=== PATIENT | female | born 1995 | race Caucasian/White ===

== ENCOUNTER 2016-11-19 18:19 | Emergency (ER) | payer BC ==
[2016-11-19 18:32] VITALS: BP 113/58
--- NOTE | 2016-11-19 21:11 | EDM.PDOC ---
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 Patient is approximately 8 weeks . She is a . 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 Last miscarriage was about 2 years ago. Patient reports that the bleeding started about 30 minutes prior to arrival in the ER. She reports it was heavy at first and describes it as "slimy and brown". She has not utilized a pad for the bleeding. She reports associated symptoms of breast tenderness, fatigue and constipation. She reports some occasional nausea but has not had any in the last 2 days. She denies any cramping, pelvic or abdominal pain, fevers, chills, vomiting, dysuria or hematuria. Patient's reports her last menstrual period was September 23. She has been seen in Dr. Burch and Jesika Chin for her PARTS CLEANER care. States that they have followed her closely due to her previous miscarriages. Next appt with Vivian Mcclendon is scheduled for December 13. Last visit with Kim was about 2 weeks ago. She has heard heart tones. She reports that her blood type is A+. 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 Denies: fever, chills GI/Abdominal: Reports: Constipation. Denies: Abdominal pain, Nausea, Vomiting : Reports: other (vaginal bleeding; reports breast tenderness). Denies: dysuria, hematuria, pain ED EXAM - Physical Exam Exam: See Below Exam Limited By: No limitations General Appearance: alert, WD/WN, no apparent distress Respiratory/Chest: no respiratory distress, lungs clear, normal breath sounds Cardiovascular: normal peripheral pulses, regular rate, rhythm, no murmur GI/Abdominal: normal bowel sounds, soft, non tender (Female) Exam: Normal external exam, Normal speculum exam, Vaginal bleeding ( small amount of brown blood in the vagina). No: Cervical dilatation, Products of conception, tissue present in cervix/vagina Neurological: alert, oriented, normal cognition Psychiatric: normal affect, normal mood Skin Exam: Warm, Dry, Normal color Course - Vital Signs Last Recorded V/S: Last Vital Signs Temp Pulse 89 11/19/16 18:26 Resp 16 11/19/16 18:26 BP 113/58 L 11/19/16 18:26 Pulse Ox 99 11/19/16 18:26 - Orders/Labs/Meds Labs: Laboratory Tests 11/19/16 11/19/16 Range/Units 19:10 19:15 HCG, Quant 51980.0 mIU/mL Urine Color Yellow (Yellow) Urine Appearance Cloudy H (Clear) Urine pH 7.5 (5.0-8.0) Ur Specific [place] 1.020 (1.005-1.030) Urine Protein Negative (Negative) Urine Glucose (UA) Negative (Negative) Urine Ketones Negative (Negative) Urine Occult Blood Negative (Negative) Urine Nitrite Negative (Negative) Urine Bilirubin Negative (Negative) Urine Urobilinogen 1.0 (0.2-1.0) Ur Leukocyte Esterase Negative (Negative) Urine RBC 0-5 (0-5) /hpf Urine WBC 0-5 (0-5) /hpf Ur Epithelial Cells Not Reportable Ur Squamous Epith Cells 0-5 (0-5) /hpf Amorphous Sediment Many H (NOT SEEN) /hpf Urine Bacteria Few (FEW) /hpf Urine Mucus Not seen (FEW) /hpf - Radiology Interpretation Free Text/Narrative:: transvaginal ultrasound impression per Vrad: Normal-appearing intrauterine gestational sac yolk sac and pole. [place]-rump length measures 1.3 cm consistent with an estimated gestational age of 7 weeks 4 days. Evaluation of cardiac activity is normal at 148 beats per minute. The ovaries are unremarkable. No free fluid in the pelvis. CT Results Date: 11/19/16 - Re-Assessments/Exams Free Text/Narrative Re-Assessment/Exam: 11/19/16 21:09 HCG is 85,823. UA is negative for any blood, leukocytes, nitrites, protein or ketones. I reviewed the labs and ultrasound results with the patient. appears to be fine. No reason identified for the bleeding. Recommend pelvic rest. Followup with OB this week. Discharge instructions as documented. Departure - Departure Time of Disposition: 21:10 Disposition: Home, Self-Care 01 Condition: good Clinical Impression: Instructions: First Trimester of Referrals: Jesika Chin NP [Primary Care Provider] - Forms: ED Department Discharge Additional Instructions: [id number] Tylenol as needed for pain. No intercourse or anything else vaginally until seen by OB. Follow up with OB this week. Please return to the ER if your symptoms change or worsen. In particular if you experience severe cramping, severe bleeding or any other concerning symptom.
--- NOTE | 2016-11-21 10:34 | US ---
First trimester obstetrical ultrasound: Multiple real-time images were obtained transvaginally and transabdominally. Comparison: Previous studies are available, most recent is 11/10/16. Dates: LMP: LMP given as 09/23/16, KADE 06/30/17, gestational age 8 weeks 1 day Current ultrasound: KADE 07/04/17, gestational age 7 weeks 4 days Earliest ultrasound (11/10/16): KADE 07/04/17, gestational age 7 weeks 4 days Single intrauterine gestation is seen. Amniotic fluid volume is normal. Small embryo is identified. No subchorionic hemorrhage is seen. Small cyst believed to be physiologic seen within the right ovary. Small left adnexal cyst is seen measuring 1 cm felt to be incidental. Measurements: Gestational sac: 3.07 cm - 8 weeks 1 day [place]-rump length: 1.32 cm - 7 weeks 4 days Heart rate: 146 bpm Impression: 1. Single intrauterine gestation. Dates as noted above. 2. No complicating process is identified. Other incidental findings as noted above. Diagnostic code #2 I agree with preliminary report issued by [facility] (preliminary report dictated on 11/19/16, 9:48 PM Central Time)
== END 2016-11-19 21:29 | disposition home or self-care (01) ==
LOC: JD.ED 18:19
DX: O46.91 Antepartum hemorrhage, unspecified, first trimester (principal); F17.210 Nicotine dependence, cigarettes, uncomplicated; Z91.040 Latex allergy status; Z3A.08 8 weeks gestation of pregnancy
CPT/HCPCS: 36415; 76817; 76817-26; 81001; 84702; 99283; 99284-25

== ENCOUNTER 2017-01-17 17:29 | Emergency (ER) | payer BC, MEDICAID ==
[2017-01-17 17:57] VITALS: BP 116/65
[2017-01-17] MEDS ORDERED: Lactated Ringers 1,000 ML IV ONE (18:24)
[2017-01-17] MEDS ORDERED: Sodium Chloride 0.9% 10 ML Syringe FLUSH PRN (18:24)
--- NOTE | 2017-01-17 18:26 | EDM.PDOC ---
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 Patient is approximately 17 weeks . She has had no major complications in her thus far. She was seen by myself in the ER around 8 weeks for abdominal cramping and spotting. Ultrasound was preformed and no abnormalities were identified. Patient has been seeing ob. Next visit is the end of January. Patient is a . Due date is . Current complaints include lightheadeness, cramping, vision changes, dizziness, nausea, headaches and diarrhea. Denies any vomiting. Has not taken her temp but has felt warm. Unsure how many episodes of diarrhea she has had. Reports her vision "goes in and out". Patient reports minor intermittent cramping in her mid to upper abdomen. Reports a small amount of vaginal spotting evident by brown blood, not enough to wear a pad. Had some brown blood Monday and today. No urinary symptoms. Patient reports she had a vaginal infection 3 weeks ago. She was treated with antibiotics. Sounds as if she had BV. Patient also reports vaginal pain post intercourse. Has discussed with ob. Reports vaginal pain and swelling post intercourse. She was tested for STDs and test were negative. She also had intercourse on Monday. Patient was outside a fair amount recently, of note the weather has been in the 90s to 100s. 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: Other OB/BYN History: DNC, stillbirth - Past Surgical History GI Surgical History: Reports: Cholecystectomy Female Surgical History: Reports: D&C Social & Family History - Tobacco Use Smoking Status *Q: Former Smoker Years of Tobacco use: 4 Packs/Tins Daily: 0.1 Used Tobacco, but Quit: Yes Month Tobacco Last Used: october Second Hand Smoke Exposure: Yes - Caffeine Use Caffeine Use: Reports: Soda - Alcohol Use Days Per Week of Alcohol Use: 0 Number of Drinks Per Day: 0 Total Drinks Per Week: 0 - Recreational Drug Use Recreational Drug Use: No Drug Use in Last 12 Months: No ED ROS GENERAL - Review of Systems Review Of Systems: See Below Constitutional: Denies: Fever (has felt warm but has not taken her temp) HEENT: Reports: Vision Change (reports vision " goes in and out") Respiratory: Denies: Cough GI/Abdominal: Reports: Abdominal Pain (minor abdominal cramping in the mid to upper abdomen), Diarrhea (can not quantify), Nausea. Denies: Hematochezia, Melena, Vomiting : Denies: Dysuria (reports brown vaginal discharge x 2 episodes) Neurological: Reports: Headache ED EXAM - Physical Exam Exam: See Below Exam Limited By: No Limitations General Appearance: Alert, WD/WN, No Apparent Distress Ears: Normal External Exam Throat/Mouth: Normal Inspection, No Airway Compromise Neck: Normal Inspection Respiratory/Chest: No Respiratory Distress, Lungs Clear, Normal Breath Sounds Cardiovascular: Normal Peripheral Pulses, Regular Rate, Rhythm, No Murmur GI/Abdominal: Soft, Non-Tender, Gravid Uterus Fundal Height In cm: 18 Heart Tones: Present Heart Tones per Min: 140 (140 to 150) Neurological: Alert, Oriented, Normal Cognition Course - Vital Signs Last Recorded V/S: Last Vital Signs Temp 36.3 C 01/17/17 17:51 Pulse 87 01/17/17 17:51 Resp 12 01/17/17 17:51 BP 116/65 01/17/17 17:51 Pulse Ox 100 01/17/17 17:51 Orthostatic Blood Pressure [ 103/66 Standing] Orthostatic Blood Pressure [ 102/66 Sitting] Orthostatic Blood Pressure [ 114/61 Supine] - Orders/Labs/Meds Labs: Laboratory Tests 01/17/17 01/17/17 01/17/17 Range/Units 17:45 19:30 19:30 WBC 11.40 H (3.98-10.04) K/mm3 RBC 3.92 L (3.98-5.22) M/mm3 Hgb 11.3 (11.2-15.7) gm/L Hct 33.7 L (34.1-44.9) % MCV 86.0 (79.4-94.8) fl MCH 28.8 (25.6-32.2) pg MCHC 33.5 (32.2-35.5) g/dl RDW Std Deviation 43.0 (36.4-46.3) fL Plt Count 316 (182-369) K/mm3 MPV 10.1 (9.4-12.3) fl Neut % (Auto) 65.7 (34.0-71.1) % Lymph % (Auto) 26.0 (19.3-51.7) % [place] % (Auto) 6.8 (4.7-12.5) % Eos % (Auto) 1.1 (0.7-5.8) Baso % (Auto) 0.2 (0.1-1.2) % Neut # (Auto) 7.50 H (1.56-6.13) K/mm3 Lymph # (Auto) 2.96 (1.18-3.74) K/mm3 [place] # (Auto) 0.77 H (0.24-0.36) K/mm3 Eos # (Auto) 0.13 (0.04-0.36) K/mm3 Baso # (Auto) 0.02 (0.01-0.08) K/mm3 Sodium 138 (136-145) mEq/L Potassium 3.6 (3.5-5.1) mEq/L Chloride 104 (98-107) mEq/L Carbon Dioxide 24 (21-32) mEq/L Anion Gap 13.6 (5-15) BUN 5 L (7-18) mg/dL Creatinine 0.5 L (0.55-1.02) mg/dL Est Cr Clr Drug Dosing 148.47 mL/min Estimated GFR (MDRD) > 60 (>60) mL/min BUN/Creatinine Ratio 10.0 L (14-18) Glucose 78 (74-106) mg/dL Calcium 9.0 (8.5-10.1) mg/dL Total Bilirubin 0.1 L (0.2-1.0) mg/dL AST 14 L (15-37) U/L ALT 27 (14-59) U/L Alkaline Phosphatase 18 L (46-116) U/L Total Protein 7.1 (6.4-8.2) g/dl Albumin 3.2 L (3.4-5.0) g/dl Globulin 3.9 gm/dL Albumin/Globulin Ratio 0.8 L (1-2) Urine Color Yellow (Yellow) Urine Appearance Clear (Clear) Urine pH 6.0 (5.0-8.0) Ur Specific [place] 1.020 (1.005-1.030) Urine Protein Negative (Negative) Urine Glucose (UA) Negative (Negative) Urine Ketones Negative (Negative) Urine Occult Blood Negative (Negative) Urine Nitrite Negative (Negative) Urine Bilirubin Negative (Negative) Urine Urobilinogen 0.2 (0.2-1.0) Ur Leukocyte Esterase Negative (Negative) Urine RBC 0-5 (0-5) /hpf Urine WBC 0-5 (0-5) /hpf Ur Epithelial Cells 0-5 (0-5) /hpf Urine Bacteria Rare (FEW) /hpf Urine Mucus Few (FEW) /hpf Meds: Medications Discontinued Medications Generic Name Dose Route Start Last Admin Trade Name Raimundoq PRN Reason Stop Dose Admin Lactated Ringer's 1,000 mls @ 999 mls/hr 01/17/17 18:24 01/17/17 18:50 Ringers, Lactated IV 01/17/17 19:24 999 mls/hr .BOLUS ONE Administration Sodium Chloride 10 ml 01/17/17 18:24 01/17/17 18:49 Saline Flush FLUSH 10 ml ASDIRECTED PRN Administration Keep Vein Open - Re-Assessments/Exams Free Text/Narrative Re-Assessment/Exam: 01/17/17 20:13 Labs include the following WBC is 11.40, hgb is 11.3 and plts are 316 sodium is 138, potassium is 3.6 and chloride is 104. creatinine is 0.5. anion gap is 13.6 and glucose is 78 AST is 14, ALT is 27 and alk phos is 18 UA is negative for nitrites, leuks, gluclose, protein and blood. I reviewed the lab results with the patient. At this time we will discharge home. Her nausea has improved. She feels much better after 1L LR. I offered to recheck her for BV, she does not want to be checked today. Her urine was sent for culture but her UA was unremarkable. Vaginal swelling and pain could be from an irritate her partner is using such as lotion or soap. We discussed this. She will talk further with her partner about this. Discharge instructions this document. Departure - Departure Time of Disposition: 20:13 Disposition: Home, Self-Care 01 Condition: Good Clinical Impression: , Nausea and vomiting in - Discharge Information Instructions: Nausea and Vomiting, Adult Referrals: Marlon Sandoval MD [Primary Care Provider] - Forms: ED Department Discharge Additional Instructions: Go home and rest. Continue to drink plenty of fluids. Drink half your body weight in ounces and fluids every day. [id number] Tylenol as needed for pain relief. follow-up with OB in 1-2 weeks. Nothing vaginally, including intercourse, until cleared by OB. Please return to the ER if your symptoms change or worsen.
== END 2017-01-17 20:25 | disposition home or self-care (01) ==
LOC: JD.ED 17:29
DX: O21.9 Vomiting of pregnancy, unspecified (principal); Z90.49 Acquired absence of other specified parts of digestive tract; Z91.040 Latex allergy status; Z87.891 Personal history of nicotine dependence; Z3A.17 17 weeks gestation of pregnancy
CPT/HCPCS: 36415; 80053; 81001; 85025; 87086; 96360; 99284; J7050; J7120; 99283

== ENCOUNTER 2017-06-30 08:56 | Inpatient (IN) | payer MEDICAID ==
[2017-06-30] MEDS ORDERED: Ondansetron 4 MG/2 ML SDV IVPUSH PRN (20:11)
[2017-06-30] MEDS ORDERED: Sodium Chloride 0.9% 10 ML Syringe FLUSH PRN (20:11)
[2017-06-30] MEDS ORDERED: Lidocaine 1% 50 ML MDV INJECT ONE (20:11)
[2017-06-30] MEDS ORDERED: Oxytocin/Lactated Ringers 10 UNIT/1,000 ML BAG IV SCH (20:15)
[2017-07-01] MEDS ORDERED: Ondansetron 4 MG/2 ML SDV IVPUSH PRN (00:25)
[2017-07-01] MEDS ORDERED: ePHEDrine 50 MG/ML SDV IVPUSH PRN (00:25)
[2017-07-01] MEDS ORDERED: diphenhydrAMINE 50 MG/ML SDV IVPUSH PRN (00:25)
[2017-07-01] MEDS ORDERED: fentaNYL 100 MCG/2 ML SDV EPIDUR PRN (00:25)
[2017-07-01] MEDS: Lactated Ringers 1,000 ML IV SCH ×3 (00:30→02:30)
[2017-07-01] MEDS: Bupivacaine/fentaNYL/NS 100 ML Bag EPIDUR SCH ×2 (01:12→08:18)
--- NOTE | 2017-07-01 01:15 | PCM.PREANE ---
Preanesthetic Assessment - Anesthesia/Transfusion/Family Hx Anesthesia History: Prior Anesthesia Without Reaction Family History of Anesthesia Reaction: No Transfusion History: No Prior Transfusion(s) Intubation History: Unknown - Review of Systems General: No Symptoms Pulmonary: No Symptoms Cardiovascular: No Symptoms Gastrointestinal: No Symptoms Neurological: No Symptoms Other: Reports: None - Physical Assessment O2 Sat by Pulse Oximetry: 99 Respiratory Rate: 14 Vital Signs: Last Vital Signs Temp 36.9 C 06/30/17 20:11 Pulse 114 H 06/30/17 20:11 Resp 14 06/30/17 20:11 BP 106/56 L 06/30/17 20:11 Pulse Ox 99 06/30/17 20:11 Height: 1.6 m Weight: 102.058 kg Mental Status: Alert & Oriented x3 Airway Class: Mallampati = 1 Dentition: Reports: Normal Dentition Thyro-Mental Finger Breadths: 3 Mouth Opening Finger Breadths: 3 ROM/Head Extension: Full Lungs: Clear to Auscultation, Normal Respiratory Effort Cardiovascular: Regular Rate, Regular Rhythm - Lab Values: Laboratory Last Values WBC 8.08 K/mm3 (3.98-10.04) 06/30/17 21:00 RBC 3.68 M/mm3 (3.98-5.22) L 06/30/17 21:00 Hgb 10.5 gm/L (11.2-15.7) L 06/30/17 21:00 Hct 31.7 % (34.1-44.9) L 06/30/17 21:00 MCV 86.1 fl (79.4-94.8) 06/30/17 21:00 MCH 28.5 pg (25.6-32.2) 06/30/17 21:00 MCHC 33.1 g/dl (32.2-35.5) 06/30/17 21:00 RDW Std Deviation 44.6 fL (36.4-46.3) 06/30/17 21:00 Plt Count 259 K/mm3 (182-369) 06/30/17 21:00 MPV 10.2 fl (9.4-12.3) 06/30/17 21:00 Neut % (Auto) 77.9 % (34.0-71.1) H 06/30/17 21:00 Lymph % (Auto) 11.9 % (19.3-51.7) L 06/30/17 21:00 [place] % (Auto) 9.4 % (4.7-12.5) 06/30/17 21:00 Eos % (Auto) 0.2 (0.7-5.8) L 06/30/17 21:00 Baso % (Auto) 0.1 % (0.1-1.2) 06/30/17 21:00 Neut # (Auto) 6.29 K/mm3 (1.56-6.13) H 06/30/17 21:00 Lymph # (Auto) 0.96 K/mm3 (1.18-3.74) L 06/30/17 21:00 [place] # (Auto) 0.76 K/mm3 (0.24-0.36) H 06/30/17 21:00 Eos # (Auto) 0.02 K/mm3 (0.04-0.36) L 06/30/17 21:00 Baso # (Auto) 0.01 K/mm3 (0.01-0.08) 06/30/17 21:00 - Allergies Allergies/Adverse Reactions: Allergies Allergy/AdvReac Type Severity Reaction Status Date / Time Latex, Natural Rubber Allergy Hives Verified 06/17/17 21:55 - Acknowledgements Anesthesia Type Planned: Epidural Pt an Appropriate Candidate for the Planned Anesthesia: Yes Alternatives and Risks of Anesthesia Discussed w Pt/Guardian: Yes Pt/Guardian Understands and Agrees with Anesthesia Plan: Yes PreAnesthesia Questionnaire - Past Health History Medical/Surgical History: Denies Medical/Surgical History HEENT History: Reports: None Genitourinary History: Reports: None 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: Other OB/BYN History: DNC, stillbirth Hematologic History: Reports: Anemia - Infectious Disease History Infectious Disease History: Reports: None - Past Surgical History GI Surgical History: Reports: Cholecystectomy Female Surgical History: Reports: D&C - SUBSTANCE USE Smoking Status *Q: Current Every Day Smoker Tobacco Use Within Last Twelve Months: Cigarettes Second Hand Smoke Exposure: Yes Days Per Week of Alcohol Use: 0 Number of Drinks Per Day: 0 Total Drinks Per Week: 0 Recreational Drug Use History: Yes Recreational Drug Type: 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, Heroin, Methamphetamine Recreational Drug Last Use: 06/2015 - HOME MEDS Home Medications: Home Meds Vits #93/Iron Fum/FA [ Formula Tablet] 1 tab PO DAILY 01/17/17 [History] - CURRENT (IN HOUSE) MEDS Current Meds: Current Medications Diphenhydramine HCl (Benadryl) 25 mg IVPUSH Q6H PRN PRN Reason: Pruritis Ephedrine Sulfate (Ephedrine Sulfate) 5 mg IVPUSH ASDIRECTED PRN PRN Reason: Hypotension Fentanyl (Sublimaze) 100 mcg EPIDUR ONETIME PRN PRN Reason: Pain Last Admin: 07/01/17 01:12 Dose: 100 mcg Fentanyl/Bupivacaine HCl (Fentanyl/Bupivacaine/Ns 2 Mcg-0.125% 100 Ml) 100 ml EPIDUR ASDIRECTED ALEX Last Admin: 07/01/17 01:12 Dose: 100 ml Lactated Ringer's (Ringers, Lactated) 1,000 mls @ 100 mls/hr IV ASDIRECTED ALEX Last Admin: 07/01/17 00:30 Dose: 999 mls/hr Oxytocin/Lactated Ringer's (Pitocin In Lr 10 Units/1,000 Ml) 10 unit in 1,000 mls @ 12 mls/hr IV TITRATE ALEX; 2 MUNITS/MIN PRN Reason: Protocol Ondansetron HCl (Zofran) 4 mg IVPUSH Q4H PRN PRN Reason: Nausea/Vomiting Ondansetron HCl (Zofran) 4 mg IVPUSH ONETIME PRN PRN Reason: Nausea/Vomiting Sodium Chloride (Saline Flush) 10 ml FLUSH ASDIRECTED PRN PRN Reason: Keep Vein Open Discontinued Medications Lidocaine HCl (Xylocaine 1%) 10 ml INJECT ONETIME ONE Stop: 06/30/17 20:12
--- NOTE | 2017-07-01 09:32 | PCM.SN ---
- Free Text/Narrative Note: Regine is a 22-year-old 3 para 10-1 white female who was admitted last evening for elective induction of labor. She is 39-4/7 weeks gestational age at the time of admission. She was induced with artificial rupture membranes and then augmented with Pitocin. She progressed steadily to complete cervical dilation by approximately 0830 hrs. on 07/01/2017. She pushed for approximately one half hour and at 0856 hrs. she delivered a viable, bernstein, male with Apgars of 8 and 9, a weight of 3110 g (6 pounds 13.7 ounces), a length of 20.5 inches. She delivered in a occiput anterior position. Amniotic fluid was clear. She had a second-degree perineal laceration which was repaired with 3-0 Monocryl in a routine fashion. Pitocin was administered IV after delivery of the baby to facilitate an increase in uterine tone and decrease bleeding. Placenta delivered in a Bruce presentation, appeared intact and complete and was discarded per patient desire. Estimated blood loss was 100 mL. Patient plans to bottlefeed. Condition: Good
[2017-07-01] MEDS ORDERED: Lanolin 100% Cream 7 GM Tube TOP PRN (10:27)
[2017-07-01] MEDS ORDERED: Acetaminophen 325 MG Tab PO PRN (10:27)
[2017-07-01] MEDS ORDERED: Measles, Mumps & Rubella Vaccine 0.5 ML SDV SUBCUT ONE (10:27)
[2017-07-01] MEDS ORDERED: Witch Hazel Medicated Pads 100/Jar TOP PRN (10:27)
[2017-07-01] MEDS ORDERED: Benzocaine/Menthol 20%-0.5% Spray 56 GM Canister TOP PRN (10:27)
[2017-07-01] MEDS: Ibuprofen 600 MG Tab PO PRN ×2 (11:05→17:24)
--- NOTE | 2017-07-01 11:08 | PCM48HPAN ---
Post Anesthesia Note - EVALUATION WITHIN 48HRS OF ANESTHETIC Vital Signs in Normal Range: Yes Patient Participated in Evaluation: Yes Respiratory Function Stable: Yes Airway Patent: Yes Cardiovascular Function Stable: Yes Hydration Status Stable: Yes Pain Control Satisfactory: Yes Nausea and Vomiting Control Satisfactory: Yes Mental Status Recovered: Yes
[2017-07-01] MEDS ORDERED: Pseudoephedrine 30 MG Tab PO PRN (19:54)
[2017-07-01] MEDS ORDERED: diphenhydrAMINE 25 MG Cap PO PRN (19:56)
[2017-07-01] MEDS ORDERED: Docusate Sodium 100 MG Cap PO PRN (21:05)
[2017-07-02] MEDS: Ibuprofen 600 MG Tab PO PRN ×2 (02:23→07:55)
[2017-07-02] MEDS ORDERED: Prenatal Multivitamin with Calcium/Folic Acid/Iron Tab PO SCH (09:00)
--- NOTE | 2017-07-02 10:16 | PCM.DCSUM1 ---
Discharge Summary - Hospital Course Free Text/Narrative:: Regine is a 22-year-old 3 para 10-1 white female who was admitted last evening for elective induction of labor. She is 39-4/7 weeks gestational age at the time of admission. She was induced with artificial rupture membranes and then augmented with Pitocin. She progressed steadily to complete cervical dilation by approximately 0830 hrs. on 07/01/2017. She pushed for approximately one half hour and at 0856 hrs. she delivered a viable, bernstein, male with Apgars of 8 and 9, a weight of 3110 g (6 pounds 13.7 ounces), a length of 20.5 inches. She delivered in a occiput anterior position. Amniotic fluid was clear. She had a second-degree perineal laceration which was repaired with 3-0 Monocryl in a routine fashion. Pitocin was administered IV after delivery of the baby to facilitate an increase in uterine tone and decrease bleeding. Placenta delivered in a Bruce presentation, appeared intact and complete and was discarded per patient desire. Estimated blood loss was 100 mL. Patient plans to bottlefeed. patient is done well. Her vital signs were stable. She is ambulating well. She is bottle feeding. Lochia is minimal. She is voiding without problems. She is desiring discharge home. - Discharge Data Discharge Date: 07/02/17 Discharge Disposition: Home, Self-Care 01 Condition: Good - Patient Instructions Diet: Regular Diet as Tolerated Activity: As Tolerated (No intercourse or tampons until bleeding resolves) Driving: May Drive Today Showering/Bathing: May Shower (Patient may take) Notify Provider of: Fever, Increased Pain, Swelling and Redness, Nausea and/or Vomiting - Discharge Plan Home Medications: Home Meds Vits #93/Iron Fum/FA [ Formula Tablet] 1 tab PO DAILY 01/17/17 [History] Ibuprofen [IJD: Ibuprofen] 600 mg PO Q4H PRN tablet 07/02/17 [Rx] Referrals: Marlon Sandoval MD [Primary Care Provider] - (Return to clinicDr. Sandoval2 weeks.) - Discharge Summary/Plan Comment DC Time >30 min.: No Discharge Summary/Plan Comment: Discharge instructions: 1. Discharge home 2. Diet, activity and follow-up discussed with patient. Recommend nursing diet with increased calories and calcium. 3. Precautions given concern increased pain, bleeding, temperature, signs/ symptoms of DVT/PE. 4. Medications per home medication was printed, discussed with and given to the patient. 5. Return to clinic-Dr. Sandoval-[facility] in 2 weeks. Diagnosis: Term -delivered Condition: Good - Patient Data Vitals - Most Recent: Last Vital Signs Temp 36.6 C 07/02/17 04:12 Pulse 81 07/02/17 04:12 Resp 18 07/02/17 04:12 BP 106/87 07/02/17 04:12 Pulse Ox 92 L 07/02/17 04:12 Weight - Most Recent: 102.058 kg Lab Results - Last 24 hrs: Laboratory Results - last 24 hr 07/02/17 Range/Units 06:20 WBC 9.78 (3.98-10.04) K/mm3 RBC 3.27 L (3.98-5.22) M/mm3 Hgb 9.3 L (11.2-15.7) gm/L Hct 28.5 L (34.1-44.9) % MCV 87.2 (79.4-94.8) fl MCH 28.4 (25.6-32.2) pg MCHC 32.6 (32.2-35.5) g/dl RDW Std Deviation 44.5 (36.4-46.3) fL Plt Count 264 (182-369) K/mm3 MPV 9.8 (9.4-12.3) fl Med Orders - Current: Current Medications Acetaminophen (Tylenol) 650 mg PO Q4H PRN PRN Reason: mild pain or fever Benzocaine/Menthol (Dermoplast Pain Relief [place]) 0 gm TOP ASDIRECTED PRN PRN Reason: Perineal Comfort Measure Last Admin: 07/01/17 11:06 Dose: 1 applic Diphenhydramine HCl (Benadryl) 25 mg PO Q4H PRN PRN Reason: Congestion Last Admin: 07/01/17 20:16 Dose: 25 mg Docusate Sodium (Colace) 100 mg PO BID PRN PRN Reason: Constipation Last Admin: 07/01/17 21:15 Dose: 100 mg Emollient Ointment (Lansinoh Hpa) 0 gm TOP ASDIRECTED PRN PRN Reason: Sore Nipples Ibuprofen (Motrin) 600 mg PO Q4H PRN PRN Reason: Mild pain or fever Last Admin: 07/02/17 07:55 Dose: 600 mg Prenat Multivit/Moville/Iron/Folic Ac ( Plus Iron) 1 each PO DAILY ALEX Pseudoephedrine HCl (Sudogest) 30 mg PO Q6H PRN PRN Reason: Congestion Last Admin: 07/01/17 20:17 Dose: 30 mg Witch Karen (Tucks) 1 pad TOP ASDIRECTED PRN PRN Reason: Hemorrhoid pain Last Admin: 07/01/17 11:05 Dose: 1 applic Discontinued Medications Diphenhydramine HCl (Benadryl) 25 mg IVPUSH Q6H PRN PRN Reason: Pruritis Last Admin: 07/01/17 06:41 Dose: 25 mg Ephedrine Sulfate (Ephedrine Sulfate) 5 mg IVPUSH ASDIRECTED PRN PRN Reason: Hypotension Fentanyl (Sublimaze) 100 mcg EPIDUR ONETIME PRN PRN Reason: Pain Last Admin: 07/01/17 01:12 Dose: 100 mcg Fentanyl/Bupivacaine HCl (Fentanyl/Bupivacaine/Ns 2 Mcg-0.125% 100 Ml) 100 ml EPIDUR ASDIRECTED ALEX Last Admin: 07/01/17 08:18 Dose: 100 ml Lactated Ringer's (Ringers, Lactated) 1,000 mls @ 100 mls/hr IV ASDIRECTED ALEX Last Admin: 07/01/17 02:30 Dose: 100 mls/hr Oxytocin/Lactated Ringer's (Pitocin In Lr 10 Units/1,000 Ml) 10 unit in 1,000 mls @ 12 mls/hr IV TITRATE ALEX; 2 MUNITS/MIN PRN Reason: Protocol Last Titration: 07/01/17 08:14 Dose: 8 munits/min, 48 mls/hr Lidocaine HCl (Xylocaine 1%) 10 ml INJECT ONETIME ONE Stop: 06/30/17 20:12 Last Admin: 07/01/17 21:05 Dose: Not Given Measles/Mumps/Rubella Vaccine Live (M-M-R Ii Vaccine) 0.5 ml SUBCUT .ONCE ONE Stop: 07/01/17 10:28 Last Admin: 07/01/17 22:51 Dose: 0.5 ml Ondansetron HCl (Zofran) 4 mg IVPUSH Q4H PRN PRN Reason: Nausea/Vomiting Ondansetron HCl (Zofran) 4 mg IVPUSH ONETIME PRN PRN Reason: Nausea/Vomiting Sodium Chloride (Saline Flush) 10 ml FLUSH ASDIRECTED PRN PRN Reason: Keep Vein Open *Q Meaningful Use (DIS) - VTE *Q VTE Criteria *Q: - Stroke *Q Stroke Criteria *Q: - AMI *Q AMI Criteria *Q:
[2017-07-02 19:29] VITALS: BP 112/68
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
== END 2017-07-02 12:30 | disposition home or self-care (01) | DRG 775 ==
LOC: JD.OB 08:56 → OBSVTOIN 07-01 08:56 → JD.OB 07-01 08:56
PROVIDERS: ADMIT Obstetrics & Gynecology; ATTEND Obstetrics & Gynecology
PROC: 10E0XZZ Delivery of Products of Conception, External Approach (ICD-10-PCS; principal; 2017-07-01)
PROC: 0KQM0ZZ Repair Perineum Muscle, Open Approach (ICD-10-PCS; 2017-07-01)
PROC: 3E0P3VZ Introduction of Hormone into Female Reproductive, Percutaneous Approach (ICD-10-PCS; 2017-07-01)
PROC: 10907ZC Drainage of Amniotic Fluid, Therapeutic from Products of Conception, Via Natural or Artificial Opening (ICD-10-PCS; 2017-07-01)
PROC: 00HU33Z Insertion of Infusion Device into Spinal Canal, Percutaneous Approach (ICD-10-PCS; 2017-07-01)
PROC: 3E0R3BZ Introduction of Anesthetic Agent into Spinal Canal, Percutaneous Approach (ICD-10-PCS; 2017-07-01)
PROC: 3E0234Z Introduction of Serum, Toxoid and Vaccine into Muscle, Percutaneous Approach (ICD-10-PCS; 2017-07-01)
DX: O70.1 Second degree perineal laceration during delivery (principal); Z37.0 Single live birth; Z3A.39 39 weeks gestation of pregnancy; Z23 Encounter for immunization; Z91.040 Latex allergy status
CPT/HCPCS: 36415; 51702; 59300; 59409; 85025; 85027; 90471; 90707; A9270-GY; J1200; J2590; J3010; J7120

== ENCOUNTER 2018-03-07 00:48 | Emergency (ER) | payer SELFPAY ==
[2018-03-07] MEDS ORDERED: Diphtheria,Pertussis(Acell),Tetanus Vaccine 0.5 ML SDV IM ONE (01:16)
[2018-03-07] MEDS ORDERED: Lidocaine/EPINEPHrine/Tetracaine Soln 1 ML TOP STA (01:17)
[2018-03-07] MEDS ORDERED: Lidocaine 1% with EPINEPHrine 1:100,000 20 ML MDV INJECT ONE (01:42)
[2018-03-07] MEDS ORDERED: Bupivacaine 0.5% 10 ML SDV INJECT ONE (01:42)
--- NOTE | 2018-03-07 01:42 | EDM.PDOC ---
ED HPI GENERAL MEDICAL PROBLEM - General Chief Complaint: Lower Extremity Injury/Pain Stated Complaint: INJURED LEFT KNEE Time Seen by Provider: 03/07/18 01:04 Source of Information: Reports: Patient History Limitations: Reports: No Limitations - History of Present Illness INITIAL COMMENTS - FREE TEXT/NARRATIVE: The patient states she was carrying her baby on a gravel surface around 23:30 tonight, when she tripped and fell, landing on her left knee. She presents with a laceration to the anterior left knee. She is otherwise uninjured. The patient does not recall when her last tetanus vaccination was. The patient does not have a PCP. 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: Endocrine/Metabolic History: Reports: Obesity/BMI 30+ Hematologic History: Reports: Anemia - Past Surgical History GI Surgical History: Reports: Cholecystectomy (2015) Female Surgical History: Reports: D&C Musculoskeletal Surgical History: Reports: ORIF (right elbow) Social & Family History - Family History Family Medical History: Noncontributory - Tobacco Use Smoking Status *Q: Current Every Day Smoker Years of Tobacco use: 8 Packs/Tins Daily: 0.5 - Caffeine Use Caffeine Use: Reports: Coffee, Soda, Tea, Other Other Caffeine Use: 1-3 drinks daily - Alcohol Use Alcohol Use History: Yes Alcohol Use Frequency: Socially - Recreational Drug Use Recreational Drug Use: No - Living Situation & Occupation Living situation: Reports: , with Significant Other (Fiance), with Family (1 child) Occupation: Employed ([employer]) Review of Systems - Review of Systems Review Of Systems: ROS reveals no pertinent complaints other than HPI. ED EXAM, GENERAL - Physical Exam Exam: See Below Exam Limited By: No Limitations General Appearance: Alert, WD/WN, No Apparent Distress Extremities: Other (Approximate 4.5 cm irregular laceration, tangential to the leg, over the left patellar ligament. Neurovascular status of the left lower extremity is intact.) ED TRAUMA EXTREMITY PROCEDURES - Laceration/Wound Repair Left Knee Lac/Wound Length In cm: 4.5 Appearance: Subcutaneous, Irregular, Clean Distal NVT: Neuro & Vascular Intact, No Tendon Injury Anesthetic Type: Topical (LET) Local Anesthesia - Lidocaine (Xylocaine): 1% with EPI (50:50 admixture) Local Anesthesia - Bupivicaine (Marcaine): 0.5% Plain (50:50 admixture) Local Anesthetic Volume: 3cc Skin Prep: Providone-Iodine (Betadine) Exploration/Debridement/Repair: Wound Explored, In a Bloodless Field, Explored to Base, Minimal Debridement, Minimally Undermined, No Foreign Material Found, Wound Margins Revised Closed With: Sutures Suture Size: 3-0 # of Sutures: 9 Suture Type: Nylon (Ethilon), Interrupted, Simple Sterile Dressing Applied: Nurse Tetanus Status Addressed: Yes Complications: No Course - Vital Signs Last Recorded V/S: Last Vital Signs Temp 36.3 C 03/07/18 00:58 Pulse 85 03/07/18 00:58 Resp 18 03/07/18 00:58 BP Pulse Ox 99 03/07/18 00:58 - Orders/Labs/Meds Orders: Active Orders 24 hr Category Date Time Status Vaccines to be Administered [RC] PER UNIT ROUTINE Care 03/07/18 01:16 Active Meds: Medications Discontinued Medications Generic Name Dose Route Start Last Admin Trade Name Yuliet PRN Reason Stop Dose Admin Bupivacaine HCl 10 ml 03/07/18 01:42 03/07/18 01:47 Sensorcaine-Mpf 0.5% INJECT 03/07/18 01:43 10 ml ONETIME ONE Administration Diphtheria/Tetanus/Acell Pertussis 0.5 ml 03/07/18 01:16 03/07/18 01:29 Adacel IM 03/07/18 01:17 0.5 ml .ONCE ONE Administration Lidocaine/Epinephrine 20 ml 03/07/18 01:42 03/07/18 01:47 Xylocaine 1% With Epinephrine 1:100,000 INJECT 03/07/18 01:43 20 ml ONETIME ONE Administration Lidocaine/Tetracaine 2 ml 03/07/18 01:17 03/07/18 01:28 Let Soln TOP 03/07/18 01:18 2 ml ONETIME STA Administration - Re-Assessments/Exams Free Text/Narrative Re-Assessment/Exam: 03/07/18 02:27 Following topical let, followed by local infiltration with a 50-50 admixture of lidocaine 1% with epinephrine and bupivacaine 0.5% without epinephrine, the patient's left knee laceration was sutured with 9 simple interrupted sutures, using 3-0 Ethilon. The patient tolerated the procedure well. A large bandage will be placed over the wound. Wound management was explained to the patient and her fianc. Departure - Departure Time of Disposition: 02:29 Disposition: Home, Self-Care 01 Condition: Good Clinical Impression: Laceration of left knee - Discharge Information *PRESCRIPTION DRUG MONITORING PROGRAM REVIEWED*: Not Applicable *COPY OF PRESCRIPTION DRUG MONITORING REPORT IN PATIENT ROLAND: Not Applicable Referrals: Tia Colindres PA-C [Primary Care Provider] - Forms: ED Department Discharge Additional Instructions: You were seen in the emergency room after tripping and falling, cutting your left knee. Your laceration was closed with 9 sutures. You received a tetanus vaccination in the ER. Keep the wound clean with ordinary soap and water. Pat dry, then apply a clean bandage over the wound, daily. We DO NOT recommend that you apply an antibiotic ointment. Take [id number] Tylenol or ibuprofen as needed for discomfort. The sutures should be ready for removal by 03/16/2018. This can be done at a walk-in clinic, by a nurse at your doctor's office, or in the ER. If any other problems, please do not hesitate to return to the ER. - My Orders Last 24 Hours: My Active Orders 03/07/18 01:16 Vaccines to be Administered [RC] PER UNIT ROUTINE - Assessment/Plan Last 24 Hours: My Active Orders 03/07/18 01:16 Vaccines to be Administered [RC] PER UNIT ROUTINE
== END 2018-03-07 02:55 | disposition home or self-care (01) ==
LOC: JD.ED 00:48
DX: S81.012A Laceration without foreign body, left knee, initial encounter (principal); E66.9 Obesity, unspecified; F17.210 Nicotine dependence, cigarettes, uncomplicated; Z23 Encounter for immunization; Z91.040 Latex allergy status; W01.0XXA Fall on same level from slipping, tripping and stumbling without subsequent striking against object, initial encounter
CPT/HCPCS: 12002; 90471; 90715; 99283; A9270; J3490; 99282-25

== ENCOUNTER 2018-03-08 17:58 | Emergency (ER) | payer SELFPAY ==
[2018-03-08 18:26] VITALS: BP 150/82
--- NOTE | 2018-03-08 18:51 | EDM.PDOC ---
ED HPI GENERAL MEDICAL PROBLEM - General Chief Complaint: Lower Extremity Injury/Pain Stated Complaint: LEFT KNEE LAC NUMBNESS Time Seen by Provider: 03/08/18 18:26 Source of Information: Reports: Patient History Limitations: Reports: No Limitations - History of Present Illness INITIAL COMMENTS - FREE TEXT/NARRATIVE: 23 -year-old female presents for evaluation and treatment of complications from a laceration to the left knee. Patient was seen in the ER the other night. She had 10 sutures placed to the left knee. Injury occurred after she fell onto some gravel. She reports since she's had the sutures placed she has appreciated increased swelling, redness and pain to the area. She denies any fevers, chills , nausea or vomiting. She denies any purulent discharge from the area. States she has been washing the area with soap and water but has not been applying a topical antibacterial ointment. 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: Other LAUNCH CHECK OUT History: DNC, stillbirth Endocrine/Metabolic History: Reports: Obesity/BMI 30+ Hematologic History: Reports: Anemia - Infectious Disease History Infectious Disease History: Reports: None - Past Surgical History GI Surgical History: Reports: Cholecystectomy Female Surgical History: Reports: D&C Musculoskeletal Surgical History: Reports: ORIF Social & Family History - Family History Family Medical History: Noncontributory - Tobacco Use Smoking Status *Q: Current Every Day Smoker Years of Tobacco use: 4 Packs/Tins Daily: 0.5 - Caffeine Use Caffeine Use: Reports: Coffee, Soda, Tea, Other Other Caffeine Use: 1-3 drinks daily - Recreational Drug Use Recreational Drug Use: No - Living Situation & Occupation Living situation: Reports: , with Significant Other (Fiance), with Family (1 child) Occupation: Employed ([employer]) Review of Systems - Review of Systems Review Of Systems: See Below Constitutional: Denies: Chills, Fever GI/Abdominal: Denies: Nausea, Vomiting Musculoskeletal: Reports: Joint Pain (left knee), Joint Swelling (left knee) Skin: Reports: Erythema (left knee), Wound (left knee) ED EXAM, GENERAL - Physical Exam Exam: See Below Exam Limited By: No Limitations General Appearance: Alert, WD/WN, No Apparent Distress Respiratory/Chest: No Respiratory Distress, Lungs Clear, Normal Breath Sounds Cardiovascular: Normal Peripheral Pulses, Regular Rate, Rhythm, No Murmur Extremities: Other (Left knee has 10 sutures placed. No pus or drainage. Wound is well approximated and healing. Surrounding the room is about a 4 cm diameter area of erythema with slight increased warmth and tenderness. Minor swelling.) Neurological: Alert, Oriented, Normal Cognition Psychiatric: Normal Affect, Normal Mood Skin Exam: Warm, Dry, Normal Color, Erythema (Left knee), Increased Warmth ( Left knee), Wound/Incision (Left knee) Course - Vital Signs Last Recorded V/S: Last Vital Signs Temp 98.0 F 03/08/18 18:23 Pulse 100 03/08/18 18:23 Resp 15 03/08/18 18:23 BP 150/82 H 03/08/18 18:23 Pulse Ox 98 03/08/18 18:23 Departure - Departure Time of Disposition: 18:46 Disposition: Home, Self-Care 01 Condition: Good Clinical Impression: Cellulitis - Discharge Information *PRESCRIPTION DRUG MONITORING PROGRAM REVIEWED*: No *COPY OF PRESCRIPTION DRUG MONITORING REPORT IN PATIENT ROLAND: No Prescriptions: Doxycycline [Vibramycin] 100 mg PO BID #20 cap Instructions: Cellulitis, Adult Referrals: PCP,Unknown [Primary Care Provider] - Tia Colindres PA-C [Physician Metal Pickling Equipment Operator] - Forms: ED Department Discharge Additional Instructions: Doxycycline 1 Twice a day for 10 days. Take this with food. This medication can cause photosensitivity. Avoid the sun and if you are out in the sun make sure you are wearing sunscreen. make sure you are drinking plenty of fluids. Continue to wash the wound with gentle soap and water. Follow-up in about 8 days to have the sutures removed at the clinic. Monitor the area of erythema. It may become slightly worse before comes better. If you notice that it is greatly worsen or you're experiencing symptoms such as fevers, chills or vomiting please return to the ER. [id number] Tylenol and Motrin as needed for pain relief. Please return to the ER if your symptoms change or worsen..
== END 2018-03-08 19:05 | disposition home or self-care (01) ==
LOC: JD.ED 17:58
DX: L03.116 Cellulitis of left lower limb (principal); F17.210 Nicotine dependence, cigarettes, uncomplicated; Z91.040 Latex allergy status
CPT/HCPCS: 99283

== ENCOUNTER 2018-03-16 11:06 | Emergency (ER) | payer SELFPAY ==
[2018-03-16 11:36] VITALS: BP 96/75
--- NOTE | 2018-03-16 12:12 | EDM.PDOC ---
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 Time Seen by Provider: 03/16/18 11:55 Source of Information: Reports: Patient History Limitations: Reports: No Limitations - History of Present Illness INITIAL COMMENTS - FREE TEXT/NARRATIVE: Patient is a 23-year-old female presents ED wishing to have sutures removed from the left knee. Patient sustained a laceration left knee after falling on some rocks at her residence. She was seen in the ED and had sutures placed on . Laceration measured approximately 4.5 cm. She was placed on doxycycline the following day. Patient has had some mild redness to the suture site. She been placing triple antibiotic ointment continues to take the doxycycline as prescribed. No drainage noted. No increased swelling. Minimal discomfort with palpation. 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 HYDROTREATER OPERATOR History: DNC, stillbirth Endocrine/Metabolic History: Reports: Obesity/BMI 30+ Hematologic History: Reports: Anemia - Infectious Disease History Infectious Disease History: Reports: None - Past Surgical History GI Surgical History: Reports: Cholecystectomy Female Surgical History: Reports: D&C Musculoskeletal Surgical History: Reports: ORIF Social & Family History - Family History Family Medical History: Noncontributory - Tobacco Use Smoking Status *Q: Current Every Day Smoker Years of Tobacco use: 4 Packs/Tins Daily: 0.5 - Caffeine Use Caffeine Use: Reports: Energy Drinks, Soda Other Caffeine Use: 1-3 drinks daily - Recreational Drug Use Recreational Drug Use: No - Living Situation & Occupation Living situation: Reports: , with Significant Other (Fiance), with Family (1 child) Occupation: Employed ([employer]) ED ROS GENERAL - Review of Systems Review Of Systems: ROS reveals no pertinent complaints other than HPI. ED EXAM, SKIN/RASH Exam: See Below Exam Limited By: No Limitations General Appearance: Alert, WD/WN, No Apparent Distress Ears: Hearing Grossly Normal Nose: Normal Inspection Throat/Mouth: Normal Voice, No Airway Compromise Respiratory/Chest: No Respiratory Distress, No Accessory Muscle Use Cardiovascular: Normal Peripheral Pulses, Regular Rate, Rhythm Peripheral Pulses: 2+: Radial (L) Extremities: Other (4.5 cm laceration to the let knee. Well approximated with faint redness to laceration site. Sutures removed per nursing staff with steri strips placed. Wound did not separate.) Neurological: Alert, Oriented, Normal Cognition, Normal Gait, No Motor/Sensory Deficits Psychiatric: Normal Affect, Normal Mood Skin: Warm, Dry Course - Vital Signs Last Recorded V/S: Last Vital Signs Temp 97.0 F 03/16/18 11:33 Pulse 102 H 03/16/18 11:33 Resp 20 03/16/18 11:33 BP 96/75 03/16/18 11:33 Pulse Ox 98 03/16/18 11:33 - Orders/Labs/Meds Orders: Active Orders 24 hr Category Date Time Status DRUG SCREEN, URINE [URCHEM] Stat Lab 03/16/18 11:45 Ordered Labs: Laboratory Tests 03/16/18 03/16/18 Range/Units 11:45 11:45 Urine HCG, Qual Negative (NEGATIVE) Urine Opiates Screen Negative (NEGATIVE) Ur Buprenorphine Scrn Negative (NEGATIVE) Ur Oxycodone Screen Negative (NEGATIVE) Urine Methadone Screen Negative (NEGATIVE) Ur Propoxyphene Screen Negative (NEGATIVE) Ur Barbiturates Screen Negative (NEGATIVE) Ur Tricyclics Screen Negative (NEGATIVE) Ur Phencyclidine Scrn Negative (NEGATIVE) Ur Amphetamine Screen Presumptive positive H (NEGATIVE) U Methamphetamines Scrn Negative (NEGATIVE) U Benzodiazepines Scrn Negative (NEGATIVE) U Cocaine Metab Screen Negative (NEGATIVE) U Marijuana (THC) Screen Negative (NEGATIVE) - Re-Assessments/Exams Free Text/Narrative Re-Assessment/Exam: UA came back negative for hCG. Positive for amphetamines. Patient admits to taking Adderall. She does not have a prescription for this. She receives this medication from a family member and takes routinely for being tired. I told her she should not be taking this medication. The use is not appropriate. Sutures removed by nursing staff with laceration edges staying closed with no dehiscence. Steri-Strips placed. Discharge instructions as documented. Departure - Departure Time of Disposition: 12:26 Disposition: Home, Self-Care 01 Condition: Good Clinical Impression: Laceration of left knee Qualifiers: Encounter type: subsequent encounter Qualified Code(s): S81.012D - Laceration without foreign body, left knee, subsequent encounter - Discharge Information Instructions: Wound Care, Adult Referrals: Tia Colindres PA-C [Primary Care Provider] - Forms: ED Department Discharge Additional Instructions: Complete course of oral antibiotics. Cleanse site twice daily with soap and water, pat dry, keep area clean and dry. Let Steri-Strips fall off on their own in the next 5-7 days. May continue to utilize triple and about ointment to the affected area. This may cause the Steri-Strips to fall off sooner. Return to ED if you develop any new or worsening symptoms. Do not place Aquaphor or any other products on the laceration. Stop taking the Adderall. This medication is not prescribed to you. - My Orders Last 24 Hours: My Active Orders 03/16/18 11:45 DRUG SCREEN, URINE [URCHEM] Stat - Assessment/Plan Last 24 Hours: My Active Orders 03/16/18 11:45 DRUG SCREEN, URINE [URCHEM] Stat
== END 2018-03-16 12:35 | disposition home or self-care (01) ==
LOC: JD.ED 11:06
DX: S81.012D Laceration without foreign body, left knee, subsequent encounter (principal); E66.9 Obesity, unspecified; Z91.040 Latex allergy status; W19.XXXD Unspecified fall, subsequent encounter
CPT/HCPCS: 80306; 81025; 99283

== ENCOUNTER 2018-03-17 17:28 | Emergency (ER) | payer SELFPAY ==
[2018-03-17 17:42] VITALS: BP 104/57
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
== END 2018-03-17 18:01 | disposition home or self-care (01) ==
LOC: JD.ED 17:28
DX: S81.012S Laceration without foreign body, left knee, sequela (principal); X58.XXXS Exposure to other specified factors, sequela; Z91.040 Latex allergy status; F17.210 Nicotine dependence, cigarettes, uncomplicated
CPT/HCPCS: 99282; 99283

== ENCOUNTER 2018-11-27 19:25 | Emergency (ER) | payer MEDICAID ==
[2018-11-27 19:42] VITALS: BP 120/73
--- NOTE | 2018-11-27 21:39 | EDM.PDOC ---
ED HPI GENERAL MEDICAL PROBLEM - General Chief Complaint: Respiratory Problem Stated Complaint: DRY COUGH CONGESTION Time Seen by Provider: 11/27/18 19:51 Source of Information: Reports: Patient History Limitations: Reports: No Limitations - History of Present Illness INITIAL COMMENTS - FREE TEXT/NARRATIVE: 23 y/o female presents to ER with cc chest discomfort for the past 1-2 months. She reports it is painful to take a deep breath at times. She denies any fever, chills, body aches. She admits to smoking meth for a year and quit 2 months ago. She denies any dyspnea, night sweats, productive cough. She admits to having anxiety. She also complains of having nasal polyps. She states she has been using a cool mist vaporizer which helps. She uses Flonase but it doesn't help much. She is accompanied by her friend. Onset Date: 09/14/18 Duration: Getting Worse, Intermittent Location: Reports: Chest Quality: Reports: Dull Severity: Mild Improves with: Reports: None Worsens with: Reports: Breathing Associated Symptoms: Reports: Cough, Headaches. 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, stillbirth Psychiatric History: Reports: Addiction Endocrine/Metabolic History: Reports: Obesity/BMI 30+ Hematologic History: Reports: Anemia - Infectious Disease History Infectious Disease History: Reports: None - Past Surgical History GI Surgical History: Reports: Cholecystectomy Female Surgical History: Reports: D&C Musculoskeletal Surgical History: Reports: ORIF Social & Family History - Family History Family Medical History: Noncontributory - Tobacco Use Smoking Status *Q: Current Every Day Smoker Years of Tobacco use: 8 Packs/Tins Daily: 0.5 - Caffeine Use Caffeine Use: Reports: Coffee Other Caffeine Use: 1-3 drinks daily - Recreational Drug Use Recreational Drug Use: Yes Drug Use in Last 12 Months: Yes Recreational Drug Type: Reports: Methamphetamine Other Recreational Drug Type: Patient states she's been sober for two months. - Living Situation & Occupation Living situation: Reports: , with Significant Other (Fiance), with Family (1 child) Occupation: Employed ([employer]) ED ROS GENERAL - Review of Systems Review Of Systems: See Below Constitutional: Denies: Fever, Chills HEENT: Reports: No Symptoms Respiratory: Reports: Cough. Denies: Shortness of Breath Cardiovascular: Reports: Other (chest discomfort with a deep breath. ) Endocrine: Reports: No Symptoms GI/Abdominal: Reports: No Symptoms : Reports: No Symptoms Musculoskeletal: Reports: No Symptoms Skin: Reports: No Symptoms Neurological: Reports: No Symptoms Psychiatric: Reports: No Symptoms Hematologic/Lymphatic: Reports: No Symptoms Immunologic: Reports: No Symptoms ED EXAM, GENERAL - Physical Exam Exam: See Below Exam Limited By: No Limitations General Appearance: Alert, WD/WN, No Apparent Distress Ears: Normal External Exam, Normal Canal, Hearing Grossly Normal, Normal TMs Nose: Normal Inspection, Normal Mucosa, No Blood, Nasal Swelling, Clear Rhinorrhea. No: Nasal Drainage Throat/Mouth: Normal Inspection, Normal Lips, Normal Teeth, Normal Gums, Normal Oropharynx, Normal Voice, No Airway Compromise Head: Atraumatic, Normocephalic Neck: Normal Inspection, Supple, Non-Tender, Full Range of Motion Respiratory/Chest: No Respiratory Distress, Lungs Clear, Normal Breath Sounds, No Accessory Muscle Use, Chest Non-Tender Cardiovascular: Normal Peripheral Pulses, Regular Rate, Rhythm, No Edema, No Gallop, No JVD, No Murmur, No Rub Neurological: Alert, Oriented, CN II-XII Intact, Normal Cognition, Normal Gait Psychiatric: Normal Affect, Normal Mood Skin Exam: Warm, Dry, Intact, Normal Color, No Rash Course - Vital Signs Last Recorded V/S: Last Vital Signs Temp 97.4 F 11/27/18 19:39 Pulse 118 H 11/27/18 19:39 Resp 19 11/27/18 19:39 BP 120/73 11/27/18 19:39 Pulse Ox 100 11/27/18 19:39 - Re-Assessments/Exams Free Text/Narrative Re-Assessment/Exam: 11/27/18 21:41 23 y/o female presented to ER with cc discomfort when she takes a deep breath. I do not feel she needs a chest x-ray since her lungs are clear and she is 100 % on room air. She received a cool mist neb treatment and her condition improved. I will discharge home with instructions to continue using her cool mist vaporizer. I will give her a ENT referral for her nasal polyps. I instructed her to return to the ER for any new or acute worsening symptoms. She verbalized understanding and is comfortable with plan for discharge. She is stable at time of discharge. Departure - Departure Time of Disposition: 21:44 Disposition: Home, Self-Care 01 Condition: Good Clinical Impression: URI (upper respiratory infection) Qualifiers: URI type: unspecified viral URI Qualified Code(s): J06.9 - Acute upper respiratory infection, unspecified - Discharge Information Instructions: Steps to Quit Smoking, [id number], Upper Respiratory Infection , Adult, [id number] Referrals: Judy Colmenares PA-C [Primary Care Provider] - Additional Instructions: You have been diagnosis with viral upper respiratory infection. You do not need antibiotics. Continue to use cool mist vaporizer. Follow up with your PCP. Dr. Polk is a ENT in [place], he can see and evaluate your nasal polyps. Return to the ER for any new or acute worsening symptoms.
== END 2018-11-27 21:58 | disposition home or self-care (01) ==
LOC: JD.ED 19:25
DX: J06.9 Acute upper respiratory infection, unspecified (principal); F17.210 Nicotine dependence, cigarettes, uncomplicated; Z91.040 Latex allergy status
CPT/HCPCS: 99281; 99283